=== PATIENT | female | born 1990 | race Two or more races ===

== ENCOUNTER 2024-10-06 19:25 | Emergency (ER) | payer MEDICAID, SELFPAY ==
[2024-10-06 19:39] VITALS: PULSE 98; RESP 18; O2SAT 98; BMI 36.3
[2024-10-06 19:49] VITALS: BP 132/63; PULSE 78; RESP 18; TEMP 37.2; O2SAT 100
--- NOTE | 2024-10-06 19:56 | EDNOTE_ITS ---
ED General RME/HPI General Chief complaint: Shortness of Breath/Dyspnea Stated complaint: ANXIETY Time Seen by Provider: 10/06/24 19:40 Arrival date/time: 10/06/24 19:25 RME / HPI RME / HPI narrative: 33-year-old female patient came in for evaluation regarding carpopedal spasm. Patient with complaints morning with carpopedal spasm, severity moderate. Normal associated with shortness of breath and hyperventilation. Patient uses cocaine last night. Denies any chest pain denies any other complaints. Related Data Previous Rx's ?Medication ?Instructions ?Recorded hydroxyzine HCl 50 mg tablet 50 mg PO TID PRN anxiety #30 tabs 10/06/24 Allergies Allergy/AdvReac Type Severity Reaction Status Date / Time No Known Allergies Allergy Verified 10/06/24 19:39 Review of Systems Review of Systems Narrative Review of Systems: Review of system reviewed and within normal limits except mentioned in HPI ED Exam Narrative Physical exam: VITAL SIGNS: Reviewed. GENERAL APPEARANCE: Alert and interactive, follows commands, no acute distress, HEAD AND FACE: Non-traumatic. ENT: PERRL, pink conjunctivitis, eyelid no trauma, Mucous membrane moist. NECK: Supple, nontender, no nuchal rigidity. CHEST: No tenderness, no crepitus, no paradoxical movement, no retractions. LUNGS: Clear, well ventilated, symmetric, no rales, no wheezing, no ronchi, no stridor, good breath sounds bilaterally. HEART: Regular rate, regular rhythm, no murmur, no gallops. ABDOMEN: Soft, positive bowel sounds, nondistended, no guarding, nontender, no rebound, no masses, RECTAL: Deferred. GENITAL: Deferred. NEUROLOGICAL: Gross motor function intact sensory function intact, Appropriate for age. MUSCULOSKELETAL: low back nontender, full range of motion. EXTREMITIES: Bilateral carpopedal spasm, with limitation range of motion. SKIN: Color pink, dry, no rash, no lacerations, no abrasions, no contusions. LYMPHATICS: Deferred. Course Quality Measures none Orders Category Date Time Status CBC [CBC] Stat Lab 10/06/24 20:25 Completed CK [Creatine Kinase] Stat Lab 10/06/24 20:25 Completed CMP [Comprehensive Metabolic Panel] Stat Lab 10/06/24 20:25 Completed Diazepam [Valium] Med 10/06/24 19:55 Discontinued 5 mg PO X1 ONE Potassium Chloride [K-Dur] Med 10/06/24 21:26 Discontinued 40 meq PO X1 ONE Vital Signs Vital signs: Vital Signs Temperature 98.9 F 10/06/24 19:49 Pulse Rate 78 10/06/24 19:49 Respiratory Rate 18 10/06/24 19:49 Blood Pressure 132/63 H 10/06/24 19:49 Pulse Oximetry (%) 100 10/06/24 19:49 Oxygen Delivery Method Room Air 10/06/24 19:49 MDM Patient data External records reviewed:: None Clinical information provided by:: patient Social determinants that could affect healthcare access:: substance use Patient has the following chronic illnesses:: None How is presenting disease/condition affected by chronic disease/condition?: e xacerbated by Evaluation data The following diagnostics were reviewed and interpreted by me:: lab results Lab and/or radiology exams considered but not ordered:: None Interpretation Summary: Laboratory workup is significant for potassium 3.2 otherwise unremarkable. Medications Medications considered but not ordered:: None Medication administrations:: Medication Administration History Discontinued Medications Diazepam (Diazepam 5 Mg Tablet) 5 mg PO X1 ONE Stop: 10/06/24 19:56 Last Admin: 10/06/24 20:09 Dose: 5 mg Documented By: CAMRYN Potassium Chloride (Potassium Chloride 20 Meq Tabcr) 40 meq PO X1 ONE Stop: 10/06/24 21:27 Last Admin: 10/06/24 21:43 Dose: 40 meq Documented By: CAMRYN Volume and potassium replacement Consultations Consultation(s) initiated? (list below): No Diagnosis Differential Diagnosis ED Complaint MDM: Carpopedal spasm, anxiety, hypokalemia Most likely diagnosis given after review of the tests above:: Carpopedal spasm , anxiety Admission Indicated Admission indicated?: not indicated Explain why admission is indicated or not indicated:: None Admission Request Was there a request for admission?: No Disposition Plan Disposition Plan: Discharge Discharge Attestation Discharge Attestation: The patient and all family members were given an opportunity to ask questions and understood the discharge instructions. Discharge instructions specifically effects, indications for sooner follow up or return to the emergency department, and the expected course of current diagnosis. Patient condition: Stable Medical Decision Making MDM Narrative MDM Narrative: 33-year-old female patient came in for evaluation regarding carpopedal spasm. Patient with complaints morning with carpopedal spasm, severity moderate. Normal associated with shortness of breath and hyperventilation. Patient uses cocaine last night. Denies any chest pain denies any other complaints. Differential Diagnosis Differential Diagnosis: Carpopedal spasm, anxiety, hypokalemia Lab Data 10/06/24 20:25 10/06/24 20:25 Labs: Lab Results 10/06/24 Range/Units 20:25 WBC 9.5 (3.6-11.0) Thou/mm3 RBC 3.65 L (4.00-5.20) Miln/mm3 Hgb 12.4 (12.0-16.0) g/dL Hct 39.0 (36.0-46.0) % MCV 107 H (80-100) fL MCH 34.0 (25.0-35.0) pg MCHC 31.8 (31.0-37.0) g/dl RDW Std Deviation 62.0 H (36.4-46.3) fL Plt Count 236 (140-440) Thou/mm3 Neut % (Auto) 84 H (37-80) % Lymph % (Auto) 8 L (10-50) % [place] % (Auto) 8 (0-12) % Eos % (Auto) 0 (0-10) % Baso % (Auto) 1 (0-2.5) % Neut # (Auto) 8.0 H (1.8-7.7) Thou/mm3 Lymph # (Auto) 0.7 L (1.0-4.8) Thou/mm3 [place] # (Auto) 0.7 (0.0-0.8) Thou/mm3 Eos # (Auto) 0.0 (0.0-0.5) Thou/mm3 Baso # (Auto) 0.1 (0.0-0.2) Thou/mm3 Immature Gran # (Auto) 0.02 H (0.00-0.00) Thou/mm3 Absolute Nucleated RBC 0.00 (0.00-0.00) Thou/mm3 Immature Gran % 0 (0-0) % Nucleated RBC % 0 (0) /100 WBC Sodium 140 (136-145) mMol/L Potassium 3.2 L (3.4-5.1) mMol/L Chloride 103 (98-107) mMol/L Carbon Dioxide 25.5 (20.0-31.0) mMol/L Anion Gap 12 (7-16) BUN 7 L (9-23) mg/dL Creatinine 0.6 (0.6-1.3) mg/dL Estim Creat Clear Calc 125.6 (>60) mL/min eGFR > 60 (60 - ) See Note BUN/Creatinine Ratio 12 (12-20) Ratio Glucose 95 (74-106) mg/dL Calculated Osmolality 277 (275-295) Calcium 10.1 (8.3-10.6) mg/dL Corrected Calcium 10.1 (8.5-10.1) mg/dL Total Bilirubin 2.6 H (0.3-1.2) mg/dL AST 78 H (0-34) U/L ALT 47 (10-49) U/L Alkaline Phosphatase 141 H (46-116) U/L Total Creatine Kinase 85 (34-171) U/L Total Protein 7.6 (5.7-8.2) gm/dL Albumin 4.4 (3.5-5.0) gm/dL Globulin 3.2 (2.3-3.5) gm/dL Albumin/Globulin Ratio 1.4 (1.2-2.2) Discharge Plan Plan Patient Disposition: HOME (Self Care) Disposition Comment: stable Prescriptions/Referrals Prescriptions/Med Rec: New hydroxyzine HCl 50 mg tablet 50 mg PO TID PRN (Reason: anxiety) Qty: 30 0RF Referrals: No Primary/Family,Physician [Primary Care Provider] - In 1 week Problem List Clinical Impression: Carpopedal spasm, Anxiety Patient/Caregiver Discharge Instructions Discharge Activity: activity as tolerated Education Materials: ED Anxiety Reaction Additional Instructions: Thank you for the opportunity for serving you today. You are stable for discharged . You are advised to: Follow-up with your PCP in 1 to 2 days Return to ED for worsening of symptoms Increase oral fluids Take medication as prescribed Print Language: St Helen[place] Stand Alone Forms: Daphne Award Info., Patient Portal Info Letter PA/TRACK TEMPLATE MAKER Supervising Physician FELIPA/PARESH Supervising Physician: MD Parveen
[2024-10-06] MEDS: DIAZEPAM 5 MG TABLET PO (20:09)
[2024-10-06 20:43] LABS: Basophils # (Auto) 0.1 Thou/mm3 (0.0-0.2); Basophils % (Auto) 1 % (0-2.5); Eosinophils % (Auto) 0 % (0-10); Hemoglobin 12.4 g/dL (12.0-16.0); Immature Granulocytes % (Auto) 0 % (0-0); Immature Granulocytes Auto 0.02 Thou/mm3 (0.00-0.00); Lymphocytes # (Auto) 0.7 Thou/mm3 (1.0-4.8); Lymphocytes % (Auto) 8 % (10-50); Mean Corpuscular HGB Conc 31.8 g/dl (31.0-37.0); Mean Corpuscular Volume 107 fL (80-100); Monocytes # (Auto) 0.7 Thou/mm3 (0.0-0.8); Monocytes % (Auto) 8 % (0-12); Neutrophils % (Auto) 84 % (37-80); Nucleated Red Blood Cell % 0 /100 WBC (0); Platelet Count 236 Thou/mm3 (140-440); Red Blood Count 3.65 Miln/mm3 (4.00-5.20); White Blood Count 9.5 Thou/mm3 (3.6-11.0)
[2024-10-06 21:12] LABS: Alanine Aminotransferase 47 U/L (10-49); Albumin, Serum 4.4 gm/dL (3.5-5.0); Albumin/Globulin Ratio 1.4 (1.2-2.2); Alkaline Phosphatase 141 U/L (46-116); Anion Gap 12 (7-16); Aspartate Amino Transferase 78 U/L (0-34); BUN/Creatinine Ratio 12 Ratio (12-20); Bilirubin,Total 2.6 mg/dL (0.3-1.2); Blood Urea Nitrogen 7 mg/dL (9-23); Calcium 10.1 mg/dL (8.3-10.6); Calcium (Corrected) 10.1 mg/dL (8.5-10.1); Carbon Dioxide 25.5 mMol/L (20.0-31.0); Chloride 103 mMol/L (98-107); Creatine Kinase 85 U/L (34-171); Creatinine (Component) 0.6 mg/dL (0.6-1.3); Estimated Creatinine Clearance 125.6 mL/min (>60); Globulin 3.2 gm/dL (2.3-3.5); Glucose 95 mg/dL (74-106); Osmolality,Calculated 277 (275-295); Potassium 3.2 mMol/L (3.4-5.1); Sodium 140 mMol/L (136-145); Total Protein 7.6 gm/dL (5.7-8.2); eGFR > 60 See Note
[2024-10-06] MEDS: POTASSIUM CHLORIDE 20 mEq TABCR 40 MEQ PO (21:43)
== END 2024-10-06 22:21 | disposition home or self-care (01) ==
PROVIDERS: Nurse Practitioner Family; Emergency Provider Emergency Medicine
DX: F41.9 Anxiety disorder, unspecified (principal); R29.0 Tetany
CPT/HCPCS: 36415; 80053; 82550; 85025; 99283; A9270

== ENCOUNTER 2025-04-14 19:41 | Emergency (ER) | payer MEDICAID, SELFPAY ==
[2025-04-14 19:49] VITALS: BP 102/72; PULSE 83; RESP 16; TEMP 36.7; O2SAT 99
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
--- NOTE | 2025-04-14 19:51 | PC.NURSE ---
PER PT NO PAIN OR ANY SYMPTOM REPORTED AT THIS TIME.
--- NOTE | 2025-04-14 19:53 | PD.EDMEDCL ---
ED Medical Clearance RME/HPI General Chief complaint: Medical Clearance Stated complaint: MEDICAL CLEARANCE Time Seen by Provider: 04/14/25 19:47 Arrival date/time: 04/14/25 19:41 Related Information Previous Rx's ?Medication ?Instructions ?Recorded hydroxyzine HCl 50 mg tablet 50 mg PO TID PRN anxiety #30 tabs 10/06/24 Allergies Allergy/AdvReac Type Severity Reaction Status Date / Time No Known Allergies Allergy Verified 10/06/24 19:39 Course Quality Measures VTE prophylaxis Vital Signs Vital signs: Vital Signs Temperature 98.1 F 04/14/25 19:49 Pulse Rate 83 04/14/25 19:49 Respiratory Rate 16 04/14/25 19:49 Blood Pressure 102/72 04/14/25 19:49 Pulse Oximetry (%) 99 04/14/25 19:49 Oxygen Delivery Method Room Air 04/14/25 19:49 Medical Clearance Patient data External records reviewed:: [facility] previous records Clinical information provided by:: patient and parent Social determinants that could affect healthcare access:: none Patient has the following chronic illnesses:: None How is presenting disease/condition affected by chronic disease/condition?: no chronic disease Evaluation data The following diagnostics were reviewed and interpreted by me:: other (specify) (Normal) Lab and/or radiology exams considered but not ordered:: None Interpretation Summary: Muscle strain Medications / Prescriptions Medications or Prescriptions considered but not ordered:: None Medication administrations:: none Consultations Consultation(s) initiated? (list below): No Diagnosis Medical Clearance Differential Diagnosis: other Most likely diagnosis given after review of the tests above:: neck strain Admission Indicated Admission indicated?: not indicated Admission Request Was there a request for admission?: No Disposition Plan Disposition Plan: Discharge Discharge Attestation Discharge Attestation: The patient and all family members were given an opportunity to ask questions and understood the discharge instructions. Discharge instructions specifically effects, indications for sooner follow up or return to the emergency department, and the expected course of current diagnosis. Patient condition: Stable Discharge Plan Plan Patient Disposition: [facility]/Court/Law Patient condition on transfer: Stable Prescriptions/Referrals Prescriptions/Med Rec: No Action hydroxyzine HCl 50 mg tablet 50 mg PO TID PRN (Reason: anxiety) Qty: 30 0RF Problem List Clinical Impression: Medical clearance for incarceration Patient/Caregiver Discharge Instructions Print Language: Bulgarian FELIPA/MICROWAVE REMOTE SENSING SCIENTIST Supervising Physician PA/MICROWAVE REMOTE SENSING SCIENTIST Supervising Physician: Dutch Cordero ENP
== END 2025-04-14 20:05 ==
LOC: SERX 20:08
PROVIDERS: Emergency Provider Emergency Medicine
DX: Z02.89 Encounter for other administrative examinations (principal); Z04.1 Encounter for examination and observation following transport accident
CPT/HCPCS: 99281